=== PATIENT | male | born 1940 | race Caucasian/White ===

== ENCOUNTER 2019-09-08 09:46 | Outpatient (CLI) | payer OTHER | END 2019-09-08 23:59 | disposition home or self-care (01) | LOC: PETCFH 09:46 | PROVIDERS: ATTEND Internal Medicine Hematology & Oncology | DX: C34.90 Malignant neoplasm of unspecified part of unspecified bronchus or lung (principal) | CPT/HCPCS: 78815; A9552 ==

== ENCOUNTER → 2020-05-08 | Outpatient (CLI) | payer OTHER | END | disposition home or self-care (01) | LOC: PETCFH 09:39 | PROVIDERS: ATTEND Internal Medicine Hematology & Oncology | DX: C34.91 Malignant neoplasm of unspecified part of right bronchus or lung (principal); J90 Pleural effusion, not elsewhere classified; J47.9 Bronchiectasis, uncomplicated | CPT/HCPCS: 78815; A9552 ==

== ENCOUNTER 2020-10-17 10:28 | Outpatient (CLI) | payer OTHER | END 2020-10-17 23:59 | disposition home or self-care (01) | LOC: PETCFH 10:28 | PROVIDERS: ATTEND Internal Medicine Hematology & Oncology | DX: C34.80 Malignant neoplasm of overlapping sites of unspecified bronchus and lung (principal); C79.51 Secondary malignant neoplasm of bone; I25.10 Atherosclerotic heart disease of native coronary artery without angina pectoris; N20.0 Calculus of kidney; I70.0 Atherosclerosis of aorta; K46.9 Unspecified abdominal hernia without obstruction or gangrene | CPT/HCPCS: 78815; A9552 ==